=== PATIENT | female | born 1990 | race Caucasian/White ===

== ENCOUNTER 2020-10-11 10:52 | Day surgery (SDC) | payer OTHER ==
[~2020-10-11 10:52] MED LIST: CEFAZOLIN SODIUM IN 0.9 % NACL 2 GM/100 ML BAG IV ONE; LACTATED RINGERS 1,000 ML IV ONE
[2020-10-11 11:10] LABS: HCG UR QUAL NEGATIVE
--- NOTE | 2020-10-11 11:29 | ANESTHESIA ---
Pre-Anesthesia VS, & Labs - Diagnosis Symptomatic right ankle hardware - Procedure removal of right ankle hardware Vital Signs: Temp Pulse Resp BP Pulse Ox 36.6 C 68 16 134/86 H 100 10/11/20 10:56 10/11/20 10:56 10/11/20 10:56 10/11/20 10:56 10/11/20 10:56 Height: 5 ft 1 in Weight (kg): 65.1 kg Body Mass Index: 27.1 BMI Classification: Overweight - NPO >8 hours - Is Patient ?: No Home Medications and Allergies Home Medications: Ambulatory Orders Norgestimate-Ethinyl Estradiol [Ortho Tri-Cyclen 28 Tablet] 1 each PO DAILY 10/05/20 Norgestimate-Ethinyl Estradiol [Ortho Tri-Cyclen 28 Tablet] 1 each PO DAILY 10/05/20 Allergies/Adverse Reactions: Allergies Allergy/AdvReac Type Severity Reaction Status Date / Time No Known Drug Allergies Allergy Verified 10/11/20 11:20 Anes History & Medical History - Anesthetic History Anesthesia Complications: reports: No previous complications - Medical History Cardiovascular: reports: None Pulmonary: reports: None Gastrointestinal: reports: None Urinary: reports: None Neuro: reports: None Musculoskeletal: reports: Other Endocrine/Autoimmune: reports: None Blood Disorders: reports: None Skin: reports: None Smoking Status: Never smoker Psychosocial: reports: Alcohol (occassional) History of Cancer?: No - Surgical History Eyes Ears Nose Throat (EENT): Tonsil/Adenoidectomy Gynecologic: Other (mastoplexy, abdominoplasty) Orthopedic: Other (right ankle fracture repair) Exam General: Alert, Oriented x3, Cooperative, No acute distress Dental: WNL Mouth Openin Fingerbreadth Neck Mobility: Normal Mallampati classification: I Thyromental Distance: 4-6 cm Mental/Cognitive Status: Alert/Oriented X3, Normal for patient Plan Anesthesia Type: General Consent for Procedure(s) Verified and Reviewed: Yes Code Status: Attempt Resuscitation ASA classification: 1-Healthy patient Is this case an emergency?: No
[2020-10-11] MEDS ORDERED: ONDANSETRON 4 MG/2 ML VIAL IVP ONE (12:00)
[2020-10-11] MEDS ORDERED: LIDOCAINE-MPF 2% 5 ML VIAL IM ONE (12:00)
[2020-10-11] MEDS ORDERED: DEXAMETHASONE 4 MG/ML VIAL IVP ONE (12:00)
[2020-10-11] MEDS ORDERED: PROPOFOL 200 MG/20 ML VIAL IVP ONE (12:00)
[2020-10-11] MEDS ORDERED: BUPIVACAINE 0.25%-EPI 1:200000 PF 30 ML VIAL ONE (12:09)
[2020-10-11] MEDS ORDERED: BUPIVACAINE 0.25%-EPI 1:200000 PF 30 ML VIAL SUBQ ONE ×2 (12:37→12:55)
[2020-10-11] MEDS ORDERED: LACTATED RINGERS 250 ML IV ONE (13:06)
[2020-10-11] MEDS ORDERED: oxyCODONE 5 MG TABLET PO PRN (13:09)
[2020-10-11] MEDS ORDERED: ONDANSETRON 4 MG/2 ML VIAL IVP PRN ×2 (13:09→13:25)
--- NOTE | 2020-10-11 13:15 | OPERATIVE REPORT ---
Operative Report - Other Other Information/Narrative: Date of Surgery: 11 October 2020 Pre-Op Diagnosis: Right ankle retained symptomatic implant Procedure: Right ankle broken screw removal from the bone Postop Diagnosis: Same Primary Surgeon: German Montano Secondary Surgeon: None Complications: None Tourniquet Time: 26 minutes EBL: 5 cc Postoperative Plan: Weightbearing as tolerated. No impact activities for 6 weeks. Normal shoe is okay Indication For Surgery: 30-year-old female sustained an open tibia and fibula fracture 8 years ago and received surgical management with syndesmotic fixation. Her syndesmosis screw broke but she had the remainder of her implants removed. She continues to have mechanical sensation with ankle motion and the syndesmotic screw is abutting the fibula. The goal of surgery is to remove that mechanical sensation. It is understood that she may potentially need syndesmosis repair at a later time. The risks, benefits, and alternatives were discussed. Risks include pain, bleeding, infection, damage to nearby structures, numbness, fracture lack of symptom relief, need for further surgery, DVT, PE, stroke, and . Written consent was obtained. Procedure in Detail: The patient was met in the pre-operative hold area on the day of the procedure. The operative extremity was signed and questions were answered. The patient was brought to the operating room and a general anesthetic was administered. Supine position was used and bony prominences were padded. Standard prepping and draping was performed. A time out confirmed patient identification, laterality, procedure, allergies, antibiotics, and images. An Esmarch was used to exsanguinate the limb and the tourniquet was elevated to 250 mmHg. Fluoroscopy was used to locate the tip of the screw and a 2 cm longitudinal incision was made medial to tibialis anterior. I dissected bluntly down medial to tibialis anterior and retracted it out of the way exposing the tip of the screw. I cleared off some of the bone that was directly around it and attempted to grab it with a rondure and unscrew it. I was unable to do so. I therefore used the coring tool by hand and placed it over the screw advancing it approximately 2 cm. At that point the screw became loose and I was able to advance the screw out. There were no complications. The wound was irrigated copiously and closed with buried 3-0 Monocryl. 10 cc of quarter percent Marcaine without epinephrine was placed deep to the incision. A sterile dressing was applied. The patient was awakened and transferred to the recovery room.
[2020-10-11] MEDS ORDERED: fentaNYL 100 MCG/2 ML VIAL IVP PRN (13:25)
[2020-10-11] MEDS ORDERED: ATROPINE ABBOJECT 1 MG/10 ML SYRINGE IVP PRN (13:25)
[2020-10-11] MEDS: HYDROmorphone 1 MG/ML CARPUJECT ONE ×2 (13:25→13:31)
[2020-10-11] MEDS ORDERED: MORPHINE 2 MG/ML CARPUJECT IVP PRN (13:25)
[2020-10-11] MEDS ORDERED: ePHEDrine 50 MG/ML VIAL IVP PRN (13:25)
[2020-10-11] MEDS ORDERED: NALOXONE 0.4 MG/ML VIAL IVP PRN (13:25)
[2020-10-11] MEDS ORDERED: HYDROmorphone 0.5 MG/0.5 ML SYRINGE IVP PRN (13:25)
[2020-10-11] MEDS ORDERED: METOCLOPRAMIDE 10 MG/2 ML VIAL IVP PRN (13:25)
[2020-10-11] MEDS ORDERED: LACTATED RINGERS 1,000 ML IV SCH (14:00)
[2020-10-11 14:11] VITALS: BP 124/81
[2020-10-11] MEDS ORDERED: oxyCODONE 5 MG TABLET ONE (14:18)
== END 2020-10-11 10:53 | disposition home or self-care (01) ==
LOC: SDS 10:52
PROVIDERS: ATTEND Orthopaedic Surgery
DX: T84.116A Breakdown (mechanical) of internal fixation device of bone of right lower leg, initial encounter (principal); T84.84XA Pain due to internal orthopedic prosthetic devices, implants and grafts, initial encounter; M25.371 Other instability, right ankle; M21.071 Valgus deformity, not elsewhere classified, right ankle
CPT/HCPCS: 81025